=== PATIENT | female | born 1935 | race Caucasian/White ===

== ENCOUNTER → 2017-08-14 | Outpatient (CLI) | payer MEDICARE, OTHER ==
[~2017-08-14] MED LIST: NEXIUM 20MG20 MG PO; PREDNISONE20 MG PO; PRINIVIL20 MG PO
== END ==
LOC: MC.RAD 11:04
DX: Z12.31 Encounter for screening mammogram for malignant neoplasm of breast (principal)

== ENCOUNTER 2017-11-10 14:30 | Emergency (ER) | payer MEDICARE, OTHER ==
[~2017-11-10] VITALS: Ht 157.5 cm; Wt 68.2 kg
[2017-11-10 14:38] VITALS: BP 137/92; TEMP 97.5
[2017-11-10] MEDS ORDERED: ULTRAM 50MG TAB50 MG PO (15:56)
[2017-11-10 16:11] VITALS: PULSE 78
== END 2017-11-10 16:12 | disposition home or self-care (01) ==
LOC: COL.ER 14:30
DX: S92.354A Nondisplaced fracture of fifth metatarsal bone, right foot, initial encounter for closed fracture (principal); X50.0XXA Overexertion from strenuous movement or load, initial encounter; Y92.009 Unspecified place in unspecified non-institutional (private) residence as the place of occurrence of the external cause

== ENCOUNTER → 2018-12-16 | Outpatient (CLI) | payer MEDICARE, OTHER ==
[~2018-12-16] MED LIST changes: +ULTRAM 50MG TAB50 MG PO
== END ==
LOC: MC.RAD 10-14 11:20
DX: Z12.31 Encounter for screening mammogram for malignant neoplasm of breast (principal)

== ENCOUNTER 2019-09-02 14:59 | Outpatient (CLI) | payer MEDICARE, OTHER ==
[~2019-09-02] VITALS: Ht 157.5 cm; Wt 71.8 kg
[~2019-09-02 14:59] MED LIST changes: -PRINIVIL20 MG PO; +ZESTORETIC 25 M1 TAB PO
[2019-09-02 15:27] VITALS: BP 128/69; PULSE 64; TEMP 97.9
[2019-09-02] MEDS ORDERED: PRILOSEC 20MG20 MG PO (15:37)
[2019-09-02] MEDS ORDERED: PROZAC 20MG20 MG PO (15:37)
[2019-09-02] MEDS ORDERED: CALCIUM 600-D 61 TAB PO (15:38)
[2019-09-02] MEDS ORDERED: MULTI VITAMINS1 TAB PO (15:38)
[2019-09-02] MEDS ORDERED: ASPIRIN E.C. 8181 MG PO (15:39)
== END 2019-09-02 17:48 | disposition home or self-care (01) ==
LOC: EUO 14:59
DX: M81.0 Age-related osteoporosis without current pathological fracture (principal)
CPT/HCPCS: J0897

== ENCOUNTER → 2020-01-27 | Outpatient (CLI) | payer MEDICARE, OTHER ==
[~2020-01-27] MED LIST changes: +ASPIRIN E.C. 8181 MG PO; +CALCIUM 600-D 61 TAB PO; +MULTI VITAMINS1 TAB PO; +PRILOSEC 20MG20 MG PO; +PROZAC 20MG20 MG PO
== END ==
LOC: MC.RAD 12-31 13:15
DX: Z12.31 Encounter for screening mammogram for malignant neoplasm of breast (principal)

== ENCOUNTER → 2024-06-25 | Outpatient (CLI) | payer MEDICARE, OTHER | LOC: MC.RAD 10:39 | DX: Z12.31 Encounter for screening mammogram for malignant neoplasm of breast (principal); R92.0 Mammographic microcalcification found on diagnostic imaging of breast ==

== ENCOUNTER 2024-08-19 10:37 | Day surgery (SDC) | payer MEDICARE, OTHER ==
[~2024-08-19] VITALS: Ht 157.6 cm; Wt 64.2 kg
[~2024-08-19 10:37] MED LIST changes: +COMPLETE MULTI1 TAB PO; +ELIQUIS 5MG PO; +LR 1,000 ML IV SCH; +NATURAL MAGNES200 MG PO; +PRINZIDE 25 MG-1 TAB PO; +PROLIA60 MG/ML SQ
[2024-08-19] MEDS ORDERED: 1/2 NS 1,000 ML IV SCH (11:00)
[2024-08-19] MEDS ORDERED: NS Flush 10 ML SYRINGE PRN ICA (11:00)
[2024-08-19] MEDS ORDERED: SINGULAIR 110 MG/TAB PO (11:48)
[2024-08-19] MEDS ORDERED: ZESTRIL 20MG TA20 MG PO (11:49)
[2024-08-19 11:50] LABS: PROTHROMBIN TIME 21.5 SECONDS (9.7-12.8)
[2024-08-19] MEDS ORDERED: CLARITIN 1010 MG/TAB PO (11:50)
[2024-08-19 11:51] VITALS: BP 154/105; PULSE 97; TEMP 97
[2024-08-19 11:52] LABS: PARTIAL THROMBOPLASTIN TIME 37.2 SECONDS (26.0-37.0)
[2024-08-19 11:53] LABS: CALCIUM 8.7 mg/dL (8.4-10.2); CREATININE, serum 0.73 mg/dL (0.57-1.11); POTASSIUM 4.2 mEq/L (3.5-4.5)
[2024-08-19 12:03] LABS: HEMATOCRIT 48.4 % (37.0-47.0); HEMOGLOBIN 17.4 g/dl (12.5-16.0); MEAN CELL VOLUME 94 fl (80.0-100.0); MEAN CORPUSCULAR HEMOGLOBIN 34 pg (27-31); MEAN CORPUSCULAR HGB CONC 36 g/dl (33.0-37.0); MEAN PLATELET VOLUME 9.6 fl (7.4-10.4); PLATELET COUNT 251 K/mm3 (130-400); RED BLOOD COUNT 5.14 M/mm3 (4.10-5.30); REDCELL DISTRIBUTION WIDTH-CV 14.1 % (11.5-14.5)
[2024-08-19] MEDS ORDERED: Lidocaine PF 2% (20 MG/ML) 5 ML VIAL ONE (12:30)
[2024-08-19 12:34] LABS: THYROID STIMULATING HORMONE 3.112 uIU/mL (0.350-4.940)
[2024-08-19] MEDS ORDERED: Hydrocortisone 1% Cream 30 GM TUBE TP PRN (13:15)
[2024-08-19 13:30] VITALS: BP 112/70; PULSE 80
--- NOTE | 2024-08-19 13:30 | NUR ---
REPORT FROM STEPH BURGER, PT IS AWAKE, BUT SLEEPY, SON IN ROOM, PT MOVES SELF IN BED, STATES "I WANT TO TAKE A NAP" EKG DONE EARLIER, CALL LIGHT IN REACH
[2024-08-19] MEDS ORDERED: MULTAQ400 MG PO (13:31)
--- NOTE | 2024-08-19 13:35 | NUR ---
Desire is awake, drowsy after JUSTEN/CV with DR. Way. Post cv EKG has been obtained. Desire remains in sinus rhythm on monitor. Son has been back to bs. BS report and handoff of care back to Lauren BURGER.
[2024-08-19 13:45] VITALS: BP 120/78; PULSE 81
[2024-08-19 14:00] VITALS: BP 138/62; PULSE 80
--- NOTE | 2024-08-19 14:00 | NUR ---
pt sits up in bed, takes bites of snack and drinks water, visits with son
[2024-08-19 14:15] VITALS: BP 136/78; PULSE 81
--- NOTE | 2024-08-19 14:15 | NUR ---
reviewed discharge inst. with pt on JUSTEN/CV precautions, also moderate sedation given and precautions on walking and getting up and down. pt will sweet pickled fruit maker new RX today, information given and appt with followup given with verbal understanding.
--- NOTE | 2024-08-19 14:30 | NUR ---
assisted in dressing, int d'yaquelin segura pt discharged via w/c with son to car with all information
[2024-08-19] MEDS ORDERED: NS Flush 10 ML SYRINGE BID ICA SCH (21:00)
== END 2024-08-19 14:30 | disposition home or self-care (01) ==
LOC: COL.CAR 10:37
PROVIDERS: Internal Medicine Cardiovascular Disease
DX: I48.91 Unspecified atrial fibrillation (principal); I08.1 Rheumatic disorders of both mitral and tricuspid valves; I10 Essential (primary) hypertension; R06.02 Shortness of breath; Z79.01 Long term (current) use of anticoagulants; Z79.899 Other long term (current) drug therapy
CPT/HCPCS: J2704

== ENCOUNTER 2024-09-09 09:51 | Inpatient (IN) | payer MEDICARE, OTHER ==
[2024-09-09] VITALS (11 sets, daily range): BP systolic 123–140; BP diastolic 70–84; PULSE 72–76; TEMP 97.8–98.1
[~2024-09-09] VITALS: Ht 160 cm; Wt 66.1 kg
[~2024-09-09 09:51] MED LIST changes: +CLARITIN 1010 MG/TAB PO; +MULTAQ400 MG PO; +SINGULAIR 110 MG/TAB PO; +ZESTRIL 20MG TA20 MG PO
[2024-09-09 10:41] LABS: HEMATOCRIT 46.9 % (37.0-47.0); HEMOGLOBIN 16.6 g/dl (12.5-16.0); MEAN CELL VOLUME 97 fl (80.0-100.0); MEAN CORPUSCULAR HEMOGLOBIN 34 pg (27-31); MEAN CORPUSCULAR HGB CONC 35 g/dl (33.0-37.0); MEAN PLATELET VOLUME 9.4 fl (7.4-10.4); PLATELET COUNT 181 K/mm3 (130-400); RED BLOOD COUNT 4.84 M/mm3 (4.10-5.30); REDCELL DISTRIBUTION WIDTH-CV 13.7 % (11.5-14.5)
[2024-09-09 10:46] LABS: INR 2.3 (0.8-3.0)
[2024-09-09 10:49] LABS: PARTIAL THROMBOPLASTIN TIME 40.3 SECONDS (26.0-37.0)
[2024-09-09 10:54] LABS: CALCIUM 8.4 mg/dL (8.4-10.2); CREATININE, serum 0.75 mg/dL (0.57-1.11); POTASSIUM 3.9 mEq/L (3.5-4.5)
[2024-09-09 10:58] LABS: MAGNESIUM 1.9 mg/dL (1.6-2.6)
[2024-09-09] MEDS ORDERED: Montelukast 10 MG TAB PO SCH (10:59)
[2024-09-09] MEDS ORDERED: Temazepam 15 MG CAP PO PRN (11:00)
[2024-09-09 11:15] LABS: THYROID STIMULATING HORMONE 5.45 uIU/mL (0.350-4.940)
[2024-09-09] MEDS ORDERED: Lidocaine PF 2% (20 MG/ML) 5 ML VIAL ONE (11:38)
[2024-09-09] MEDS ORDERED: Docusate Sodium 100 MG CAP PO PRN (11:45)
[2024-09-09] MEDS ORDERED: Acetaminophen 325 MG TAB PO PRN (11:45)
[2024-09-09] MEDS ORDERED: Apixaban 5 MG TABLET PO SCH (21:00)
--- NOTE | 2024-09-09 21:44 | NUR ---
PATIENT RESTING IN BED. DENIES PAIN AT THIS TIME. CALL LIGHT WITHIN REACH. DENIES ANY CHEST PAIN OR PALPITATIONS. BED LOCKED AND IN LOW POSITION WITH BED ALARM ON.
[2024-09-10] VITALS (12 sets, daily range): BP systolic 137–164; BP diastolic 69–97; PULSE 57–82; TEMP 96–98.3
[2024-09-10 06:22] LABS: BASO # 0.1 K/mm3 (0.0-0.2); BASO % 0.7 % (0.0-2.0); EOS # 0.4 K/mm3 (0.0-0.7); EOS % 5.3 % (0.0-4.0); GRAN # 3.2 K/mm3 (1.4-6.5); GRAN % 45.8 % (42.2-75.2); HEMATOCRIT 44.9 % (37.0-47.0); HEMOGLOBIN 15.5 g/dl (12.5-16.0); LYMPH # 2.4 K/mm3 (1.2-3.4); MEAN CELL VOLUME 97 fl (80.0-100.0); MEAN CORPUSCULAR HEMOGLOBIN 34 pg (27-31); MEAN CORPUSCULAR HGB CONC 35 g/dl (33.0-37.0); MEAN PLATELET VOLUME 9.9 fl (7.4-10.4); MONO # 0.9 K/mm3 (0.1-0.6); MONO % 12.8 % (1.7-9.3); PLATELET COUNT 195 K/mm3 (130-400); RED BLOOD COUNT 4.63 M/mm3 (4.10-5.30); REDCELL DISTRIBUTION WIDTH-CV 13.6 % (11.5-14.5)
[2024-09-10 06:47] LABS: CALCIUM 8.3 mg/dL (8.4-10.2); CREATININE, serum 0.71 mg/dL (0.57-1.11); MAGNESIUM 1.9 mg/dL (1.6-2.6); POTASSIUM 3.9 mEq/L (3.5-4.5)
[2024-09-10] MEDS ORDERED: Omeprazole 20 MG **** subs to Pantoprazole 40 MG PO SCH (07:00)
[2024-09-10] MEDS ORDERED: Loratadine 10 MG TAB PO SCH (09:00)
[2024-09-10] MEDS ORDERED: Lisinopril 20 MG TAB PO SCH (09:00)
[2024-09-10] MEDS ORDERED: FLUoxetine 20 MG CAP PO SCH (09:00)
--- NOTE | 2024-09-10 13:37 | NUR ---
SW met with patient to complete initial assessment for discharge planning. Patient confirmed that she lives at home alone in [place]. Patient's daughter, Radha Hankins [phone]) is listed as emergency contact. Patient asked for this to be changed to her son Richy Schneider who is also patient's DPOA due to daughter living out of state. Patient sees Dr. Minaya as her PCP and uses [facility] pharmacy without difficulty. Patient denies having any DME and reports to be independent with all ADLs. Patient states her son Richy will drive her home at discharge. Discharge plan: Home
--- NOTE | 2024-09-10 13:56 | NUR ---
ERI FROM CARDIOLOGY WAS CONTACTED BY THIS NURSE FOR CONCERNS ABOUT RECENT QTC READING. ERI FROM CARDIOLOGY IS AWARE AND VERBALIZED IS OKAY TO GET NEXT MEDICATION DOSE.
[2024-09-11] VITALS (8 sets, daily range): BP systolic 147–182; BP diastolic 83–127; PULSE 64–73; TEMP 97.4–98.1
--- NOTE | 2024-09-11 00:41 | NUR ---
patient lying in bed,a lert and oriented x4. denies chest pain/discomfort and shortnesss of breath. ambulating with steady gait. IV in LW is patent, site with small bloody drainage otherwise CDI. generalized small scattered bruising, no additional remarkable skin fidnings. call light within reach. patient has no further needs, questions or concerns at this time
[2024-09-11 06:22] LABS: BASO % 0.5 % (0.0-2.0); EOS # 0.4 K/mm3 (0.0-0.7); EOS % 5.5 % (0.0-4.0); GRAN # 4.1 K/mm3 (1.4-6.5); GRAN % 54.3 % (42.2-75.2); HEMATOCRIT 51.2 % (37.0-47.0); LYMPH # 2.1 K/mm3 (1.2-3.4); LYMPH % 27.1 % (20.0-51.0); MEAN CELL VOLUME 97 fl (80.0-100.0); MEAN CORPUSCULAR HGB CONC 34 g/dl (33.0-37.0); MEAN PLATELET VOLUME 10.1 fl (7.4-10.4); MONO # 0.9 K/mm3 (0.1-0.6); MONO % 12.2 % (1.7-9.3); PLATELET COUNT 135 K/mm3 (130-400); RED BLOOD COUNT 5.26 M/mm3 (4.10-5.30); REDCELL DISTRIBUTION WIDTH-CV 13.5 % (11.5-14.5)
[2024-09-11 06:24] LABS: CALCIUM 8.2 mg/dL (8.4-10.2); CREATININE, serum 0.83 mg/dL (0.57-1.11); MAGNESIUM 1.9 mg/dL (1.6-2.6)
[2024-09-11 06:31] LABS: HEMOGLOBIN 17.6 g/dl (12.5-16.0); MEAN CORPUSCULAR HEMOGLOBIN 33 pg (27-31)
--- NOTE | 2024-09-11 09:08 | NUR ---
Assessment completed. Tele reading accelerated junctional rhythm. QTC 470. Denies pain or needs at this time.
--- NOTE | 2024-09-11 10:15 | NUR ---
Initial visit; Patient thanked Hematologist Oncologist for looking in on her and offering Spiritual Care, though she declined. Hematologist Oncologist wished her well.
[2024-09-11] MEDS ORDERED: TIKOSYN0.125 MG PO (13:08)
--- NOTE | 2024-09-11 13:45 | NUR ---
Discharge instructions reviewed with patient- patient verbalizes understanding. INT d/c'd to LW with cath tip intact. Tele d/c'd. Pt escorted to private vehcile via w/c and discharged home with son.
== END 2024-09-11 13:45 | disposition home or self-care (01) | DRG 310 ==
LOC: MEDICAL 09:51 → COL.CAR 09:52 → EDSTATUS 10:30 → MEDICAL 11:35 → COL.CAR 11:35 → MEDICAL 21:00
PROVIDERS: ADMIT Internal Medicine Cardiovascular Disease
DX: I48.0 Paroxysmal atrial fibrillation (principal); I49.8 Other specified cardiac arrhythmias; Z88.0 Allergy status to penicillin; Z88.1 Allergy status to other antibiotic agents; Z88.8 Allergy status to other drugs, medicaments and biological substances; Z91.013 Allergy to seafood; Z23 Encounter for immunization
CPT/HCPCS: J2704